=== PATIENT | male | born 1965 | race Caucasian/White ===

== ENCOUNTER 2022-06-23 08:06 | Outpatient (CLI) | payer OTHER, SELFPAY ==
[2022-06-23 13:45] LABS: Albumin* 4.3 g/dL (3.3-5.0); Chloride* 103 mmol/L (96-114); Sodium* 136 mmol/L (135-149)
[2022-06-23 13:46] LABS: Potassium* 4.9 mmol/L (3.6-5.1)
[2022-06-23 13:48] LABS: Alanine Aminotransferase* 24 U/L (4-50); Alkaline Phosphatase* 90 U/L (40-150); Aspartate Amino Transferase* 27 U/L (12-35); Bilirubin Total* 0.5 mg/dL (0.1-1.5); Blood Urea Nitrogen* 10 mg/dL (7-30); Calcium* 9.4 mg/dL (8.4-10.6); Carbon Dioxide* 26 mmol/L (20-32); Creatinine* 0.8 mg/dL (0.5-1.5); Estimated Glomerular Filt Rate 103 ml/min; Glucose* 105 mg/dL (60-115); Total Protein* 6.6 g/dL (6.0-8.3)
== END 2022-06-23 08:07 | disposition home or self-care (01) ==
LOC: LKVREF 08:07
PROVIDERS: PCP Family Medicine; Visit Provider Family Medicine
DX: I10 Essential (primary) hypertension (principal); R73.9 Hyperglycemia, unspecified; Z01.818 Encounter for other preprocedural examination
CPT/HCPCS: 80053

== ENCOUNTER 2022-07-03 08:06 | Outpatient (RCR) | payer OTHER, SELFPAY ==
[2022-07-03 08:28] VITALS: BP 107/68
--- NOTE | 2022-07-03 08:30 | CRLHL7_ITS ---
For Patients: As a result of the Century Cures Act, medical imaging exams and procedure reports are released immediately into your electronic medical record. You may view this report before your referring provider. If you have questions, please contact your health care provider. MYOCARDIAL PERFUSION SCAN, 07/03/2022 CLINICAL HISTORY: 56-year-old male. CAD. Preoperative cardiac evaluation. Hypertension. Type 2 diabetes. Elevated cholesterol. 5 feet 10 inches. 293 pounds. TECHNIQUE: (Resting SPECT and Stress Gated SPECT with wall motion and ejection fraction) Stress: Pharmacologic - Lexiscan (0.4 mg) (IV) Dose (Stress/Rest): 28.4 mCi / 30.1 mCi Tc-99m Sestamibi Comparison: 12/10/2020 (report) FINDINGS: There is good uptake of activity by the left ventricle. No left ventricular enlargement is noted. There is soft tissue attenuation. No other significant fixed or reversible defects are identified. The gated images demonstrate a normal left ventricular ejection fraction of approximately 65 percent. No regional wall motion abnormalities are identified. Compared to the report of the 12/10/2020 study, there has been no significant change. IMPRESSION: 1) There is no evidence of significant myocardial ischemia or infarction. 2) Normal left ventricular ejection fraction of approximately 65 percent. This study was jointly reviewed by radiology and cardiology. Wyatt Cummins M.D. [email or web address] ERNIEB/rosie TOBIAS M.D. Department of Cardiology rosie/Dictated by: Wyatt Cummins MD @ 07/03/2022 2:17:00 PM (Electronically Signed)
--- NOTE | 2022-07-03 09:34 | P.STN_ITS ---
Stress Test Note Date Time Seen by Provider: : Date Seen: 07/03/22 Date of test: 07/03/22 Providers Referring provider: Germain Muro Primary care provider: Germain Muro Stress test physician: Kisha Lynn Stress Test Note Stress test ordered: Lexiscan Indication for test: History of an elevated calcium score, asymptomatic CAD. Preoperative eval Stress test medicine: Lexiscan Results discussion: Patient underwent Lexiscan. His cardiac stress test history reviewed prior. He had no symptoms with the medication infusion. He did a nonwalking protocol. He did have some inferior T-wave inversion as well as lateral precordial leads V3 through V6, no definitive diagnostic ST depression however. This was brief and in the initial portion but resolved by a 2 minutes 59 seconds during the infusion/exercise portion. He had no symptoms, there was no arrhythmia, no concerning findings during this test. Patient will have his post stress images obtained and then discharged to home. Impression: Subjectively negative, objectively indeterminate EKG portion of this Lexiscan. Follow up suggested: Need to await to the nuclear imaging to accompany this test for full formal diagnostic. I have reviewed with patient the false positive findings of EKG alone. Given that he was asymptomatic, no concerning hemodynamic changes noted, I am hopeful that his nuclear images will reassure us of no concerning ischemic changes in his heart. At this time he is completely stable and asymptomatic.
== END 2022-07-15 23:59 | disposition home or self-care (01) ==
LOC: STRESS 08:06
PROVIDERS: PCP Family Medicine; Visit Provider Family Medicine
DX: Z01.818 Encounter for other preprocedural examination (principal)
CPT/HCPCS: 78452; 93016; 93017; A9500

== ENCOUNTER 2023-03-05 08:02 | Outpatient (CLI) | payer OTHER, SELFPAY | END 2023-03-05 08:03 | disposition home or self-care (01) | LOC: NFLDREF 03-06 11:29 | PROVIDERS: PCP Family Medicine; Referring Provider Family Medicine; Visit Provider Family Medicine | DX: Z00.00 Encounter for general adult medical examination without abnormal findings (principal); I10 Essential (primary) hypertension; E78.00 Pure hypercholesterolemia, unspecified; E66.9 Obesity, unspecified; R73.9 Hyperglycemia, unspecified; R73.03 Prediabetes; Z12.5 Encounter for screening for malignant neoplasm of prostate | CPT/HCPCS: 80048; 80061; 84153 ==

== ENCOUNTER 2024-03-11 08:15 | Outpatient (CLI) | payer OTHER, SELFPAY | END 2024-03-11 08:16 | disposition home or self-care (01) | LOC: NFLDREF 03-14 11:16 | PROVIDERS: PCP Family Medicine; Referring Provider Family Medicine; Visit Provider Family Medicine | DX: R73.03 Prediabetes (principal); E78.00 Pure hypercholesterolemia, unspecified; R73.9 Hyperglycemia, unspecified; E66.9 Obesity, unspecified; Z12.5 Encounter for screening for malignant neoplasm of prostate | CPT/HCPCS: 80053; 80061; G0103 ==

== ENCOUNTER 2025-04-27 08:39 | Outpatient (CLI) | payer OTHER, SELFPAY | END 2025-04-27 08:40 | disposition home or self-care (01) | LOC: NFLDREF 05-04 02:18 | PROVIDERS: PCP Family Medicine; Referring Provider Family Medicine; Visit Provider Family Medicine | DX: E78.00 Pure hypercholesterolemia, unspecified (principal); I10 Essential (primary) hypertension; Z12.5 Encounter for screening for malignant neoplasm of prostate | CPT/HCPCS: 80053; 80061; G0103 ==